=== PATIENT | male | born 1990 | race Caucasian/White ===

== ENCOUNTER 2017-06-26 22:12 | Emergency (ER) | payer OTHER ==
[~2017-06-26] VITALS: Ht 180.3 cm; Wt 76.0 kg
--- NOTE | ~2017-06-26 | CR63 ---
[facility] A Service of [facility] [place] RADIOLOGY TEXT RESULTS PATIENT: CATHLEEN CHEEMA LOCATION: SED : [birth year] UNIT #: [id number] AGE: [address]: Nancy Burt APRN SEX: M ORDER DR: [id number] [place] [id number] E MR#: [id number] Acc #: [id number] NAME: CATHLEEN CHEEMA : 1990 SEX: M STUDY DATE/TIME: 06/26/2017 23:24 UNIT: SED ROOM: STUDY DESCRIPTION: CR Chest 2 View Attending Physician: Nancy Burt A.P.R.N. Ordering Physician: Nancy Burt A.P.R.N. Primary Care Physician: No Primary Care Physician MEDICAL IMAGING REPORT This report is preliminary unless electronic signature is present. EXAM Chest x-ray, 06/26/2017 at 23:24. INDICATIONS Cough, throat pain, swelling, blisters and fever for 3 days. COMPARISON Chest x-ray from 05/20/2016. FINDINGS PA and lateral examination of the chest upright shows a good expansion of the parenchyma with a normal distribution of the pulmonary vascularity. There is no indication of congestion, effusion, infiltrate, tumor, or nodular density. The pleural reflections and diaphragmatic contours are normal. The cardiac silhouette and mediastinal anatomy is within normal limits. IMPRESSION Normal two-views chest. Dictated by... Constantino Bustamante Jr., M.D. THIS IS AN ELECTRONICALLY VERIFIED REPORT Constantino Bustamante Jr., M.D. at 06/28/2017 4:55 AM KIM/paul TD: 06/27/2017 21:07 JOB #: [id number] MEDICAL IMAGING REPORT [facility] A Service of [facility] [place] RADIOLOGY TEXT RESULTS PATIENT: CATHLEEN CHEEMA LOCATION: SED : [birth year] UNIT #: [id number] AGE: [address]: Nancy Burt APRN SEX: M ORDER DR: Page 1 of 1
[~2017-06-26 22:12] MED LIST: AMOXIL500 MG PO; BACTRIM DS TABL1 TA1 PO; DICLOFENAC PO; FLEXERIL10 M1 PO; KEFLEX250 M1 PO; MOTRIN600 MG PO; NAPROSYN500 MG PO; NO MEDICATIONS; PHENERGAN25 M1 DOB; PREDNISONE PO; TYLENOL COLD &1 EACH PO; VOLTAREN50 MG PO; VOLTAREN75 MG PO; ZOVIRAX400 MG PO
[2017-06-26 23:00] LABS: BASOPHIL% 0.3 % (0-2.5); DIFF IND NO; HEMATOCRIT 40.3 % (38.0-50.0); HEMOGLOBIN 14.2 gm/dL (13.0-16.0); LYMPHOCYTE# 2.4 X10e3 (1.0-3.5); LYMPHOCYTE% 34.9 % (17.0-45.0); MEAN CELL VOLUME 89.6 FL (83-96); MEAN CORPUSCULAR HEMOGLOBIN 31.6 PG (28-34); MEAN CORPUSCULAR HGB CONC 35.3 g/dL (30-36); MEAN PLATELET VOLUME 8.6 FL (6.5-11.5); MONOCYTE# 1.3 X10e3 (0-1.0); MONOCYTE% 19.2 % (3.0-12.0); NEUTROPHIL# 3.1 X10e3 (1.5-7.1); NEUTROPHIL% 45.6 % (40-75); PLATELET COUNT 153 X10e3 (140-420); RED CELL DISTRIBUTION WIDTH 13.1 % (11.0-15.5); WHITE BLOOD COUNT 6.8 X10e3 (4.0-10.5)
[2017-06-26 23:15] LABS: BILIRUBIN,TOTAL 0.7 mg/dL (0.2-2.0); BUN/CREATININE RATIO 11.81; CALCIUM SERUM 8.7 mg/dL (8.4-10.2); CREATININE SERUM 1.1 mg/dL (0.6-1.4); GLOM FILT RATE Estimated 91.5 mL/min (>60); POTASSIUM 3.4 mmol/L (3.5-5.1)
[2017-06-27] MEDS ORDERED: AUGMENTIN PO (00:02)
[2017-06-27] MEDS ORDERED: ROBITUSSIN A-C S5 ML PO (00:02)
== END 2017-06-27 01:00 | disposition home or self-care (01) ==
LOC: SED 22:12
PROVIDERS: Nurse Practitioner Family
DX: J02.9 Acute pharyngitis, unspecified (principal)
CPT/HCPCS: 36415; 71020; 80053; 85025; 86308; 87651; 96360; 96361; 99283